=== PATIENT | female | born 1970 | race Caucasian/White ===

== ENCOUNTER → 2018-05-14 | Outpatient (CLI) | payer BC ==
--- NOTE | 2018-05-14 16:08 | RADIOLOGY IMAGING REPORT ---
[place]AC[place] [facility] [place] NAME: Renetta Briones : 1970 MR: [id number] V: [id number] EXAM DATE: ORDERING PHYSICIAN: BHAVIK ROJAS TECHNOLOGIST: [place] [facility] [place]: Renetta Briones : 1970 Visit/Account:[id number] Date of Sevice: 05/14/2018 L-SPINE 2 OR 3 VIEW HISTORY: Lower back pain COMPARISON: None. FINDINGS: Three views are submitted. Five nonrib-bearing lumbar-type vertebra are noted. There is mild narrow ing is subtle increased sclerosis and endplate spurring seen at L3-L4. Alignment is anatomic. No fr acture or destructive osseous process. Minimal endplate spurring involving the L5 vertebra. IMPRESSION: 1. Mild spondylotic changes L3-4. Report Dictated By: Carlos Garcia MD at 05/14/2018 4:03 PM Report E-Signed By: Carlos Garcia MD at 05/14/2018 4:04 PM WSN:[id number]
== END ==
LOC: RAD 15:31
PROVIDERS: ATTEND Family Medicine
DX: M47.896 Other spondylosis, lumbar region (principal)
CPT/HCPCS: 72100